=== PATIENT | male | born 2005 | race Two or more races ===

== ENCOUNTER 2024-06-13 01:22 | Emergency (ER) | payer SELFPAY ==
[~2024-06-13] VITALS: Ht 175.3 cm; Wt 64.0 kg
[2024-06-13 02:15] VITALS: BP 121/69; PULSE 91; RESP 19; TEMP 98.3; O2SAT 98
[2024-06-13 02:47] LABS: COVID19 ANTIGEN SOFIA FIA NEGATIVE (NEGATIVE)
[2024-06-13 02:47] LABS: Rapid Influenza A Negative (Negative); Rapid Influenza B Negative (Negative)
[2024-06-13] MEDS ORDERED: AMOX875T4 PO (03:22)
[2024-06-13] MEDS ORDERED: IBUP-1456 PO (03:22)
[2024-06-13] MEDS ORDERED: PRED20TA2 PO (03:22)
--- NOTE | 2024-06-13 03:23 | ED.PDOC ---
SOB-HPI HPI Comments 19-YEAR-OLD MALE PRESENTS TO ER WITH COMPLAINTS OF FLU-LIKE SYMPTOMS X1 WEEK. PATIENT REPORTS HE HAS BEEN EXPERIENCING PRODUCTIVE COUGH WITH WHITE PHLEGM, NASAL CONGESTION AND ON/OFF OCCIPITAL HEADACHE X1 WEEK. DENIES USE OF MEDICATIONS FOR CURRENT SYMPTOMS. PATIENT ALSO REPORTS HE STARTED EXPERIENCING SUBSTERNAL CHEST WALL PAIN PRESENT WITH DEEP INSPIRATION/PALPATION ONLY, THAT HE REPORTS STARTED WITH ONSET OF COUGHING, DENYING ANY CHEST PAIN AT REST. HE REPORTS 9/10 OCCIPITAL HEADACHE PAIN AND PRESENTS TO ER AMBULATORY ON ARRIVAL, ALERT ORIENTED X4, WITH STEADY GAIT, IN NO DISTRESS. DENIES SHORTNESS OF BREATH, HEMOPTYSIS, SORE THROAT, NAUSEA/VOMITING, PALPITATIONS, KNOWN EXPOSURE TO SICK CONTACTS OR ANY FURTHER SYMPTOMS/COMPLAINTS Chief Complaint: Flu like Time Seen by MD: 01:34 Primary Care Provider: UNKNOWN Reviewed notes: Nurses Notes, Medications, Allergies Information Source: Patient Mode of Arrival: Ambulatory Past Medical History PAST MEDICAL HISTORY: Denies Surgical History: Denies all surgeries Family History Family History: Unknown Social History Smoker: Other (NICOTINE VAPE) Alcohol: Denies ETOH Use Drugs: Marijuana Lives In: Home Constitutional: denies: chills, diaphoresis, fatigue, fever, malaise, sweats, weakness, others EENTM: reports: others ( STATED IN HPI) Respiratory: reports: others ( STATED IN HPI) Cardiovascular: denies: chest pain, dizzy spells, diaphoresis, Dyspnea on exertion, edema, irregular heart beat, left arm pain, lightheadedness, palpitations, PND, syncope, others Gastrointestinal: denies: abdomen distended, abdominal pain, blood streaked bowels, constipated, diarrhea, dysphagia, difficulty swallowing, hematemesis, melena, nausea, poor appetite, poor fluid intake, rectal bleeding, rectal pain, vomiting, others Genitourinary: denies: burning, dysuria, flank pain, frequency, hematuria, incontinence, penile discharge, penile sore, pain, testicle pain, testicle swelling, urgency, others Neurological: reports: others ( STATED IN HPI) Musculoskeletal: denies: back pain, gout, joint pain, joint swelling, muscle pain, muscle stiffness, neck pain, others Integumetry: denies: bruises, change in color, change in hair/nails, dryness, laceration, lesions, lumps, rash, wounds, others Allergic/Immunocompromised: denies: Difficulty Healing, Frequent Infections, Hives, Itching, others Hematologic/Lymphatic: denies: anemia, blood clots, easy bleeding, easy bruising, swollen glands, others Endocrine: denies: excessive hunger, excessive sweating, excessive thirst, excessive urination, flushing, intolerance to cold, intolerance to heat, unexplained weight gain, unexplained weight loss, others Psychiatric: denies: anxiety, bipolar disorder, depression, hopeless, panic disorder, schizophrenia, sleepless, suicidal, others Physical Exam General Appearance: No Apparent Distress HEENT: Normal ENT Inspection, PERRL/EOMI, Pharynx Normal, TMs Normal Neck: Full Range of Motion, Non-Tender, Normal Respiratory: Chest Non-Tender, Lungs Clear, No Accessory Muscle Use, No Respiratory Distress, Normal Breath Sounds Cardiovascular: No Murmur, No Gallop, Regular Rate/Rhythm Breast Exam: Deferred Gastrointestinal: NOT DONE Genitalia: Deferred Pelvic: Deferred Rectal: Deferred Extremities: Normal capillary refill, Normal range of motion Neurologic: Alert, 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 Was a procedure done?: No Sedation Sedation?: No Differential Dx Differential Diagnosis: Pneumonia, Pulmonary Embolism, Respiratory Distress, Other (COVID 19, INFLUENZA) X-Ray, Labs, Meds, VS Vital Signs Date Time Temp Pulse Resp B/P (MAP) Pulse Ox O2 Delivery O2 Flow Rate FiO2 06/13/24 02:15 98.3 91 19 121/69 (86) 98 98.3 06/13/24 02:15 91 19 98 Room Air 06/13/24 01:30 98.3 91 19 121/69 (86) 98 Lab Test 06/13/24 01:35 06/13/24 01:30 Range/Units Influenza Type A Antigen Negative Negative Influenza Type B Antigen Negative Negative SARS-CoV-2 Antigen (Rapid) Negative NEGATIVE INFLUENZA A AND B REVIEWED-NEGATIVE MONSTER REVIEWED-NEGATIVE ROCEPHIN 1 G IM ORDERED SOLU-MEDROL 125 MG IM ORDERED ADVISED TO DRINK PLENTY OF FLUIDS CANNABIS/VAPING CESSATION DISCUSSED AND ADVISED ADVISED TO F/U WITH PCP IN 1-2 DAYS PATIENT REFUSED MEDICATIONS IN ER AND WAS SEEN WALKING OUT OF FAST TRACK AND NEVER RETURNED PATIENT ELOPED FROM ER Time of 1ST Reevaluation: 03:14 Reevaluation 1ST: N/A Patient Education/Counseling: Diagnosis, Need For Follow Up, Other (PATIENT ELOPED) Family Education/Counseling: Diagnosis, Need For Follow Up, Other (PATIENT ELOPED) Departure 1 Departure Time of Disposition: 03:28 Impression: Primary Impression: Acute bronchitis Qualified Codes: J20.9 - Acute bronchitis, unspecified Disposition: 07 LEFT AWOL/ELOPED Condition: Stable Discharged With: Other (PATIENT ELOPED) Critical Care Note Critical Care Time?: No Stability Stability form required: No Heart Score Heart Score: Heart Score Response (Comments) Value History N/A 0 EKG N/A 0 Age N/A 0 Risk Factors N/A 0 Troponin N/A 0 Total 0 JULIO C DOMINGUEZ Jun 13, 2024 03:23
[2024-06-13] MEDS: cefTRIAXone SOD 1,000 MG VL IM ONE (03:45)
[2024-06-13] MEDS: methylPREDNISolone SOD SUCC 125 MG/2 ML VL IM ONE (03:45)
== END 2024-06-13 03:33 | disposition left against medical advice (07) ==
LOC: ER 01:22
DX: J20.9 Acute bronchitis, unspecified (principal); F17.290 Nicotine dependence, other tobacco product, uncomplicated; Z20.822 Contact with and (suspected) exposure to COVID-19
CPT/HCPCS: 36415; 87426; 87804

== ENCOUNTER 2024-10-23 21:33 | Emergency (ER) | payer OTHER ==
[~2024-10-23] VITALS: Ht 175.3 cm; Wt 60.8 kg
--- NOTE | 2024-10-24 04:09 | ED.PDOC ---
Psychiatric HPI Comments 19-year-old male presents to ER with complaints of anxiety x1 day. Patient reports he started experiencing shortness of breath and "feeling very anxious" while at work at 5:00 p.m. prior to arrival to ER. States he has had similar symptoms in the past related to anxiety. Notes his symptoms has since fully subsided, denying any current symptoms and presents to ER ambulatory on arrival, alert and oriented x4 with steady gait in no distress. Denies chest pain, palpitations, numbness/tingling or any further symptoms/complaints Chief Complaint: Anxiety Time Seen by MD: 21:49 Primary Care Provider: UNKNOWN Reviewed Notes: Nurses Notes, Medications, Allergies Information Source: Patient Mode of Arrival: Ambulatory Past Medical History PAST MEDICAL HISTORY: Anxiety Surgical History: Denies all surgeries Family History Family History: Unknown Social History Smoker: Non-Smoker, Other Alcohol: Denies ETOH Use Drugs: Denies Drug Use Lives In: Home Constitutional: denies: chills, diaphoresis, fatigue, fever, malaise, sweats, weakness, others EENTM: denies: blurred vision, double vision, ear bleeding, ear discharge, ear drainage, ear pain, ear ringing, eye pain, eye redness, hearing loss, mouth pain, mouth swelling, nasal discharge, nose bleeding, nose congestion, nose pain, photophobia, tearing, throat pain, throat swelling, voice changes, others Respiratory: reports: others ( STATED IN HPI) Cardiovascular: denies: chest pain, dizzy spells, diaphoresis, Dyspnea on exertion, edema, irregular heart beat, left arm pain, lightheadedness, palpitations, PND, syncope, others Gastrointestinal: denies: abdomen distended, abdominal pain, blood streaked bowels, constipated, diarrhea, dysphagia, difficulty swallowing, hematemesis, melena, nausea, poor appetite, poor fluid intake, rectal bleeding, rectal pain, vomiting, others Genitourinary: denies: burning, dysuria, flank pain, frequency, hematuria, incontinence, penile discharge, penile sore, pain, testicle pain, testicle swelling, urgency, others Neurological: denies: dizziness, fainting, headache, left sided numbness, left sided weakness, numbness, paresthesia, pre-existing deficit, right sided numbness, right sided weakness, seizure, speech problems, tingling, tremors, weakness, others Musculoskeletal: denies: back pain, gout, joint pain, joint swelling, muscle pain, muscle stiffness, neck pain, others Integumetry: denies: bruises, change in color, change in hair/nails, dryness, laceration, lesions, lumps, rash, wounds, others Allergic/Immunocompromised: denies: Difficulty Healing, Frequent Infections, Hives, Itching, others Hematologic/Lymphatic: denies: anemia, blood clots, easy bleeding, easy bruising, swollen glands, others Endocrine: denies: excessive hunger, excessive sweating, excessive thirst, excessive urination, flushing, intolerance to cold, intolerance to heat, unexplained weight gain, unexplained weight loss, others Psychiatric: reports: others ( STATED IN HPI) Physical Exam General Appearance: No Apparent Distress HEENT: Normal ENT Inspection, PERRL/EOMI, Pharynx Normal, TMs Normal Neck: Full Range of Motion, Non-Tender, Normal Respiratory: Chest Non-Tender, Lungs Clear, No Accessory Muscle Use, No Respiratory Distress, Normal Breath Sounds Cardiovascular: No Murmur, No Gallop, Regular Rate/Rhythm Breast Exam: Deferred Gastrointestinal: NOT DONE Genitalia: Deferred Pelvic: Deferred Rectal: Deferred Extremities: Normal capillary refill, Normal range of motion Neurologic: Alert, 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 Was a procedure done?: No Sedation Sedation?: No Psych Differential Dx Intoxication Differential Dx: Hallucinations, Seizures, Dehydration X-Ray, Labs, Meds, VS Vital Signs Date Time Temp Pulse Resp B/P (MAP) Pulse Ox O2 Delivery O2 Flow Rate FiO2 10/23/24 21:42 98.2 90 17 125/84 (98) 98 98.2 PATIENT ASYMPTOMATIC PRIOR TO DISCHARGE ADVISED TO DRINK PLENTY OF FLUIDS ADVISED TO FOLLOW UP WITH PCP IN 1-2 DAYS PATIENT VERBALIZED UNDERSTANDING AND AGREEABLE WITH CURRENT PLAN OF CARE ADVISED TO RETURN TO ER IMMEDIATELY IF SYMPTOMS WORSEN Time of 1ST Reevaluation: 03:44 Reevaluation 1ST: N/A Patient Education/Counseling: Diagnosis, Treatment, Prognosis, Need For Follow Up Family Education/Counseling: No Family Present Departure 1 Departure Time of Disposition: 04:02 Impression: Primary Impression: Panic attack Disposition: 01 HOME / SELF CARE / HOMELESS Condition: Stable Discharged With: Self Critical Care Note Critical Care Time?: No Stability Stability form required: No Heart Score Heart Score: Heart Score Response (Comments) Value History N/A 0 EKG N/A 0 Age N/A 0 Risk Factors N/A 0 Troponin N/A 0 Total 0 JULIO C DOMINGUEZ Oct 24, 2024 04:09
[2024-10-24 04:10] VITALS: BP 122/77; PULSE 90; RESP 18; TEMP 98.2; O2SAT 99
== END 2024-10-24 04:19 | disposition home or self-care (01) ==
LOC: ER 21:33
DX: F41.0 Panic disorder [episodic paroxysmal anxiety] (principal)

== ENCOUNTER 2025-05-30 16:04 | Emergency (ER) | payer BC ==
[~2025-05-30] VITALS: Ht 175.3 cm; Wt 60.5 kg
[2025-05-30 17:06] LABS: Hematocrit 44.0 % (41.0-53.0); Hemoglobin 14.9 g/dL (13.5-17.5); Mean Corpuscular Hemoglobin 29.4 pg (28.0-32.0); Mean Corpuscular Volume 87.0 fL (80.0-100.0); Nucleated Red Blood Cells % 0.1 %
[2025-05-30] MEDS: FAMOTIDINE 20 MG TAB PO ONE (17:06)
[2025-05-30] MEDS: ONDANSETRON ODT 4 MG TAB PO ONE (17:07)
[2025-05-30] MEDS: ACETAMINOPHEN 325 MG TAB PO ONE (17:07)
[2025-05-30 17:10] VITALS: BP 115/67; PULSE 72; RESP 17; TEMP 97.9; O2SAT 100
[2025-05-30 17:11] LABS: Chloride 106 mmol/L (98-107); Potassium 4.0 mmol/L (3.5-5.1); Sodium 139 mmol/L (136-145)
[2025-05-30 17:12] LABS: Anion Gap 5 (5-15); Carbon Dioxide 28 mmol/L (20-31)
[2025-05-30 17:13] LABS: Calcium 9.1 mg/dL (8.7-10.4)
--- NOTE | 2025-05-30 17:16 | DVH ---
Date: 05/30/2025 04:45 PM Examination: XY KUB ABDOMEN SINGLE VIEW History: abdominal pain Comparison: None TECHNIQUE: Frontal views of the abdomen was obtained. FINDINGS: Bowel gas pattern is unremarkable. The lung bases are unremarkable. No acute osseous abnormality identified. IMPRESSION: 1. Nonobstructive bowel gas pattern.
[2025-05-30 17:18] LABS: BUN/Creatinine Ratio 11.1 (10.0-20.0); Blood Urea Nitrogen 11 mg/dL (9-23); Glucose 94 mg/dL (74-106)
--- NOTE | 2025-05-30 17:31 | DVH ---
CHEST RADIOGRAPH Indication: cough Technique: Single frontal view of the chest was obtained Comparison: None FINDINGS: Lines and Tubes: None Lungs: No focal consolidation. Pleura: No effusion. No pneumothorax. Cardiomediastinal contours: Unremarkable Bones: No acute osseous abnormality. IMPRESSION: 1. No active cardiopulmonary disease.
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
== END 2025-05-30 18:22 | disposition home or self-care (01) ==
LOC: ER 16:07
DX: B34.9 Viral infection, unspecified (principal); R10.84 Generalized abdominal pain; F41.9 Anxiety disorder, unspecified; Y08.89XA Assault by other specified means, initial encounter; Y93.89 Activity, other specified; Y92.89 Other specified places as the place of occurrence of the external cause; Y99.8 Other external cause status
CPT/HCPCS: 36415; 71045; 74018; 80048; 85025; 99284; Q0162